=== PATIENT | male | born 1970 | race Caucasian/White ===

== ENCOUNTER 2025-01-10 20:30 | Emergency (ER) | payer OTHER ==
[~2025-01-10] VITALS: Ht 152.4 cm; Wt 68.0 kg
[2025-01-10] MEDS ORDERED: IBUPROFEN 600 MG TABLET ONE (22:23)
[2025-01-10] MEDS ORDERED: ACETAMINOPHEN 325 MG TABLET ONE (22:23)
[2025-01-10] MEDS: IBUPROFEN 600 MG TABLET PO ONE (22:27)
[2025-01-10] MEDS: ACETAMINOPHEN 325 MG TABLET PO ONE (22:27)
[2025-01-11 00:17] VITALS: BP 105/70; TEMP 98; O2SAT 98
== END 2025-01-11 00:18 | disposition home or self-care (01) ==
LOC: EDBD 20:33 → ER 20:33
DX: S00.531A Contusion of lip, initial encounter (principal); Y04.0XXA Assault by unarmed brawl or fight, initial encounter; Y93.89 Activity, other specified; Y92.89 Other specified places as the place of occurrence of the external cause; Y99.9 Unspecified external cause status
CPT/HCPCS: 70450-TC; 70486-TC; 72125-TC